=== PATIENT | male | born 1980 | race Caucasian/White ===

== ENCOUNTER 2017-03-25 12:48 | Emergency (ER) | payer OTHER ==
[~2017-03-25] VITALS: Ht 180.3 cm; Wt 57.0 kg
[2017-03-25] MEDS ORDERED: SODIUM CHLORIDE 0.9% 1,000ML IVBOLUS ONE ×2 (13:30)
[2017-03-25 13:57] LABS: HEMATOCRIT 47.1 % (39.2-51.8); HEMOGLOBIN 16.2 g/dL (13.7-18.0); WHITE BLOOD COUNT 9.1 x10^3/uL (3.4-10)
[2017-03-25 14:07] LABS: ASPARTATE AMINO TRANSFERASE 13 U/L (15-37); BLOOD UREA NITROGEN 14 mg/dL (7-18)
[2017-03-25] MEDS ORDERED: INSULIN REGULAR 100 UNITS/ML, 3ML VIAL SQ-INSULIN ONE (15:00)
[2017-03-25] MEDS ORDERED: INSULIN REGULAR 100 UNITS/ML, 3ML VIAL ONE (15:23)
[2017-03-25 15:34] VITALS: BP 115/70
== END 2017-03-25 15:49 | disposition home or self-care (01) ==
LOC: ED 15:33
DX: E11.65 Type 2 diabetes mellitus with hyperglycemia (principal); E86.0 Dehydration; Z79.4 Long term (current) use of insulin
CPT/HCPCS: 36415; 80053; 81003; 82010; 82800; 82962; 83735; 84100; 85025; 96360; 96361; 96372; 99284; J7030